=== PATIENT | female | born 1970 | race Caucasian/White ===

== ENCOUNTER 2017-09-25 11:43 | Day surgery (SDC) | payer BC ==
[~2017-09-25] VITALS: Ht 167.6 cm; Wt 114.4 kg
[~2017-09-25 11:43] MED LIST: ACHD5005 PO; ASP81CT PO; CPR500T PO; NAPR-243 PO; OMEG-12 PO
[2017-09-25] MEDS ORDERED: CETI10CA PO (12:03)
--- NOTE | 2017-09-25 12:10 | ED Abdominal Pain ---
General Chief Complaint: Abdominal/GI Problems Stated Complaint: PAIN RIGHT SIDE Nursing Triage Note: PT CO OF ABD PAIN, R UPPER AND LOWER ABD. PT STATES STARTED ON SUNDAY HAD FEVER ON SUNDAY 102.9. PT STATES HAS SOME NAUSEA NO VOMITING. HAS HAD DIARRHEA X 3 DAYS. HAS SOME PAIN UPON URINATION. Sepsis Screen: No Definite Risk History of Present Illness Date Seen by Provider: Sep 25, 2017 Time Seen by Provider: 12:05 Initial Comments SENT TO ER FROM [facility] WITH C/O RIGHT SIDE ABDOMINAL PAIN, FEVER, AND DIARRHEA FOR 2 DAYS. PT DENIES ANY, VOMITING OR DYSURIA, ALSO REPORTS NAUSEA. Timing/Duration: 1-2 Days Severity/Quality: Mild Location: RUQ, RLQ Radiation: No Radiation Activities at Onset: None Associated Symptoms: Fever/Chills, Nausea/Vomiting Allergies and Home Medications Allergies Coded Allergies: morphine (Verified Allergy, Mild, low blood pressure, 07/27/11) Home Medications Aspirin 81 Mg Chew, 81 MG PO DAILY, (Reported) Cetirizine HCl 10 Mg Capsule, 10 MG PO DAILY, (Reported) Review of Systems Constitutional: see HPI, chills, fever EENTM: No Symptoms Reported, See HPI Respiratory: No Symptoms Reported Cardiovascular: No Symptoms Reported Gastrointestinal: See HPI, Abdominal Pain, Diarrhea, Nausea, Denies Vomiting Genitourinary: No Symptoms Reported, See HPI Musculoskeletal: no symptoms reported Skin: no symptoms reported Psychiatric/Neurological: No Symptoms Reported Endocrine: No Symptoms Reported Hematologic/Lymphatic: No Symptoms Reported Past Ecnhzny-Vxtisg-Vugyau Hx Patient Social History Recent Foreign Travel: No Contact w/Someone Who Travel: No Recent Infectious Disease Expo: No Reproductive System Last Menstrual Period: Sep 17, 2017 Physical Exam Vital Signs VS - Last 72 Hours, by Label 09/25/17 11:50 Temp 98.0 Pulse 109 Resp 18 B/P (MAP) 147/106 (120) Pulse Ox 100 Capillary Refill : Less Than 3 Seconds General Appearance: WD/WN, no apparent distress HEENT: PERRL/EOMI, normal ENT inspection Neck: non-tender, full range of motion Respiratory: chest non-tender, lungs clear, normal breath sounds, no respiratory distress Cardiovascular: no murmur, tachycardia Gastrointestinal: normal bowel sounds, soft, rebound, tenderness Extremities: normal range of motion, non-tender Neurologic/Psychiatric: alert, normal mood/affect, oriented x 3 Skin: normal color, warm/dry Progress/Results/Core Measures Results/Orders Lab Results Laboratory Tests Test 09/25/17 12:19 09/25/17 13:30 Range/Units White Blood Count 7.2 4.3-11.0 10^3/uL Red Blood Count 4.39 4.35-5.85 10^6/uL Hemoglobin 13.2 11.5-16.0 G/DL Hematocrit 38 35-52 % Mean Corpuscular Volume 87 80-99 FL Mean Corpuscular Hemoglobin 30 25-34 PG Mean Corpuscular Hemoglobin Concent 35 32-36 G/DL Red Cell Distribution Width 13.7 10.0-14.5 % Platelet Count 228 130-400 10^3/uL Mean Platelet Volume 9.6 7.4-10.4 FL Neutrophils (%) (Auto) 65 42-75 % Lymphocytes (%) (Auto) 25 12-44 % Monocytes (%) (Auto) 8 0-12 % Eosinophils (%) (Auto) 2 0-10 % Basophils (%) (Auto) 0 0-10 % Neutrophils # (Auto) 4.7 1.8-7.8 X 10^3 Lymphocytes # (Auto) 1.8 1.0-4.0 X 10^3 Monocytes # (Auto) 0.6 0.0-1.0 X 10^3 Eosinophils # (Auto) 0.1 0.0-0.3 10^3/uL Basophils # (Auto) 0.0 0.0-0.1 10^3/uL Sodium Level 139 135-145 MMOL/L Potassium Level 4.2 3.6-5.0 MMOL/L Chloride Level 106 98-107 MMOL/L Carbon Dioxide Level 22 21-32 MMOL/L Anion Gap 11 5-14 MMOL/L Blood Urea Nitrogen 9 7-18 MG/DL Creatinine 0.86 0.60-1.30 MG/DL Estimat Glomerular Filtration Rate > 60 BUN/Creatinine Ratio 10 Glucose Level 98 70-105 MG/DL Calcium Level 9.1 8.5-10.1 MG/DL Total Bilirubin 1.1 H 0.1-1.0 MG/DL Aspartate Amino Transf (AST/SGOT) 37 H 5-34 U/L Alanine Aminotransferase (ALT/SGPT) 50 0-55 U/L Alkaline Phosphatase 90 40-136 U/L Total Protein 7.7 6.4-8.2 GM/DL Albumin 4.2 3.2-4.5 GM/DL Lipase 13 8-78 U/L Serum Test, Qualitative NEGATIVE NEGATIVE Urine Color YELLOW Urine Clarity CLEAR Urine pH 5 5-9 Urine Specific [place] 1.010 L 1.016-1.022 Urine Protein NEGATIVE NEGATIVE Urine Glucose (UA) NEGATIVE NEGATIVE Urine Ketones 2+ H NEGATIVE Urine Nitrite NEGATIVE NEGATIVE Urine Bilirubin NEGATIVE NEGATIVE Urine Urobilinogen NORMAL NORMAL MG/DL Urine Leukocyte Esterase 3+ H NEGATIVE Urine RBC (Auto) NEGATIVE NEGATIVE Urine RBC NONE /HPF Urine WBC 50-100 H /HPF Urine Squamous Epithelial Cells 10-25 H /HPF Urine Crystals NONE /LPF Urine Bacteria FEW H /HPF Urine Casts NONE /LPF Urine Mucus NEGATIVE /LPF Urine Culture Indicated YES My Orders Orders - GLENIS CARL APRN Ct Abdomen/Pelvis W (09/25/17 12:01) Cbc With Automated Diff (09/25/17 12:01) Comprehensive Metabolic Panel (09/25/17 12:01) Lipase (09/25/17 12:01) Ua Culture If Indicated (09/25/17 12:01) Saline Lock/Iv-Start (09/25/17 12:01) Ns Iv 1000 Ml (Sodium Chloride 0.9%) (09/25/17 12:15) Iohexol Injection (Omnipaque 350 Mg/Ml 1 (09/25/17 12:15) Ns (Ivpb) (Sodium Chloride 0.9%) (09/25/17 12:15) Us Gallbladder [id number] (09/25/17 12:46) Hcg,Qualitative Serum (09/25/17 13:19) Piperacillin Sodium/Tazobactam (Zosyn Vi (09/25/17 13:45) Urine Culture (09/25/17 13:30) Medications Given in ED Current Medications Medications Dose Ordered Sig/Pippa Route Start Time Stop Time Status Last Admin Dose Admin Iohexol 100 ml ONCE ONCE IV 09/25/17 12:15 09/25/17 12:16 DC 09/25/17 12:28 100 ML Sodium Chloride 250 ml ONCE ONCE IV 09/25/17 12:15 09/25/17 12:16 DC 09/25/17 12:28 80 ML Vital Signs/I&O Vital Sign - Last 12Hours 2/13/18 11:50 Temp 98.0 Pulse 109 Resp 18 B/P (MAP) 147/106 (120) Pulse Ox 100 Blood Pressure Mean: 120 Progress Note : Progress Note 1335- MONTES DE OCA HERE TO EVALUATE PT. Diagnostic Imaging Diagonstic Imaging: CT Comments NAME: DEBBIE DIANE MED REC#: [id number] PT STATUS: REG ER : 1970 PHYSICIAN: GLENIS CARL APRN ADMIT DATE: 09/25/17/ER Draft Date of Exam:09/25/17 CT ABDOMEN/PELVIS W PROCEDURE: CT abdomen and pelvis with contrast. TECHNIQUE: Multiple contiguous axial images were obtained through the abdomen and pelvis after administration of intravenous contrast. INDICATION: Pain. FINDINGS: The appendix is thick-walled, dilated with periappendiceal edema confirming acute appendicitis. It arises off the posterior wall of the cecum and is oriented superolaterally with a maximal outer wall to outer wall transverse diameter of 14.1 mm. There is an IUD device in good position within a retroflexed uterus. There are probable bilateral myometrial masses compatible with fibroids with the larger on the right measuring 2.1 cm. There is noninflamed sigmoid diverticulosis. The urinary bladder is without air and shows no acute finding. There is abscess. There is no bowel obstruction. No findings of transmural perforation or free intraperitoneal gas. 3 mm nonobstructing left renal calculus noted. Cholelithiasis is present without acute cholecystitis. The adrenals, spleen, pancreas, and kidneys are negative. IMPRESSION: 1. Acute appendicitis confirmed without evidence of bowel obstruction, transmural perforation, or abscess. 2. Additional chronic findings as listed. Results phoned to the emergency room. Dictated on workstation # [id number] Dict: 09/25/17 1300 Trans: 09/25/17 1314 [id number] Interpreted by: BLANCA FONTANEZ Electronically signed by: NAME: DEBBIE DIANE MED REC#: [id number] PT STATUS: REG ER : 1970 PHYSICIAN: GLENIS CARL APRN ADMIT DATE: 09/25/17/ER Draft Date of Exam:09/25/17 [place] GALLBLADDER [id number] CLINICAL INDICATION: Patient with right abdominal pain. EXAM: Right upper quadrant ultrasound. COMPARISON: CT scan of the abdomen and pelvis with contrast dated 09/25/2017. FINDINGS: Of note, patient's comparison CT scan shows uncomplicated acute appendicitis. The pancreatic tail is partially obscured by bowel gas. The visualized portion of pancreatic head and neck are grossly unremarkable. The liver has normal echogenicity and echotexture with no liver mass seen. There is no intrahepatic ductal dilation. The liver is mildly enlarged measuring 17.3 cm in craniocaudal dimension. The common bile duct is obscured by overlying bowel gas. There is a roughly 8 mm of posterior shadowing stone in the neck the gallbladder. Although not completely delineated on this ultrasound exam, there are at least two stones seen on the comparison CT scan. There is no significant gallbladder wall thickening, pericholecystic fluid and no sonographic Ledezma sign. The right kidney is normal-appearing with no hydronephrosis or mass. Right kidney measures 11.0 cm in craniocaudal dimension. There is no abdominal ascites. IMPRESSION: 1: Portion of the pancreatic tail and common bile duct are obscured limiting evaluation. 2: Cholelithiasis with no ultrasound evidence of acute cholecystitis. 3: Mild hepatomegaly. Otherwise, the liver is unremarkable. Dictated on workstation # [id number] Dict: 09/25/17 1316 Trans: 09/25/17 1328 [facility] [id number] Interpreted by: LAVELL PRO MD Electronically signed by: Departure Communication (Admissions) Time/Spoke to Admitting Phy: 13:08 Communication RELAYED RADIOLOGIST REPORT TO DR MONTES DE OCA AND HE WILL BE DOWN TO SEE THE PT AND PREPARE FOR SURGERY. Impression Impression: Primary Impression: Acute appendicitis Disposition: ADMITTED INPATIENT Condition: Stable Admissions Decision to Admit Reason: Admit from ER (General) Decision to Admit/Date: Sep 25, 2017 Time/Decision to Admit Time: 13:08 Departure-Patient Inst. Referrals: FERNANDO HANNA DO (PCP/Family) Primary Care Physician GLENIS CARL APRN Sep 25, 2017 12:10
[2017-09-25] MEDS ORDERED: NS IV 1000 ML 1,000 ML IV SCH (12:15)
[2017-09-25] MEDS ORDERED: NS 250 ML (IVPB) BAG IV ONE (12:15)
[2017-09-25] MEDS ORDERED: IOHEXOL 350 MG/ML 100 ML (OMNIPAQUE 350) VIAL IV ONE (12:15)
[2017-09-25 12:25] LABS: BASOPHILS % (AUTO) 0 % (0-10); EOSINOPHILS # (AUTO) 0.1 10^3/uL (0.0-0.3); EOSINOPHILS % (AUTO) 2 % (0-10); HEMATOCRIT 38 % (35-52); HEMOGLOBIN 13.2 G/DL (11.5-16.0); LYMPHOCYTES # (AUTO) 1.8 X 10^3 (1.0-4.0); LYMPHOCYTES % (AUTO) 25 % (12-44); MEAN CORPUSCULAR HEMOGLOBIN 30 PG (25-34); MEAN CORPUSCULAR HGB CONC 35 G/DL (32-36); MEAN CORPUSCULAR VOLUME 87 FL (80-99); MEAN PLATELET VOLUME 9.6 FL (7.4-10.4); MONOCYTES # (AUTO) 0.6 X 10^3 (0.0-1.0); MONOCYTES % (AUTO) 8 % (0-12); NEUTROPHILS # (AUTO) 4.7 X 10^3 (1.8-7.8); NEUTROPHILS % (AUTO) 65 % (42-75); PLATELET COUNT 228 10^3/uL (130-400); RED BLOOD COUNT 4.39 10^6/uL (4.35-5.85); RED CELL DISTRIBUTION WIDTH 13.7 % (10.0-14.5); WHITE BLOOD COUNT 7.2 10^3/uL (4.3-11.0)
[2017-09-25 12:43] LABS: ALANINE AMINOTRANSFERASE 50 U/L (0-55); ALBUMIN 4.2 GM/DL (3.2-4.5); ALKALINE PHOSPHATASE 90 U/L (40-136); BILIRUBIN,TOTAL 1.1 MG/DL (0.1-1.0); BUN/CREATININE RATIO 10; CALCIUM 9.1 MG/DL (8.5-10.1); CARBON DIOXIDE 22 MMOL/L (21-32); CHLORIDE 106 MMOL/L (98-107); CREATININE SERUM 0.86 MG/DL (0.60-1.30); GFR ESTIMATED > 60; GLUCOSE 98 MG/DL (70-105); LIPASE 13 U/L (8-78); POTASSIUM 4.2 MMOL/L (3.6-5.0); SODIUM 139 MMOL/L (135-145); TOTAL PROTEIN 7.7 GM/DL (6.4-8.2)
--- NOTE | 2017-09-25 13:15 | Diagnostic Imaging Report ---
PROCEDURE: CT abdomen and pelvis with contrast. TECHNIQUE: Multiple contiguous axial images were obtained through the abdomen and pelvis after administration of intravenous contrast. INDICATION: Pain. FINDINGS: The appendix is thick-walled, dilated with periappendiceal edema confirming acute appendicitis. It arises off the posterior wall of the cecum and is oriented superolaterally with a maximal outer wall to outer wall transverse diameter of 14.1 mm. There is an IUD device in good position within a retroflexed uterus. There are probable bilateral myometrial masses compatible with fibroids with the larger on the right measuring 2.1 cm. There is noninflamed sigmoid diverticulosis. The urinary bladder is without air and shows no acute finding. There is abscess. There is no bowel obstruction. No findings of transmural perforation or free intraperitoneal gas. 3 mm nonobstructing left renal calculus noted. Cholelithiasis is present without acute cholecystitis. The adrenals, spleen, pancreas, and kidneys are negative. IMPRESSION: 1. Acute appendicitis confirmed without evidence of bowel obstruction, transmural perforation, or abscess. 2. Additional chronic findings as listed. Results phoned to the emergency room. Dictated by: Dictated on workstation # [id number]
--- NOTE | 2017-09-25 13:28 | Diagnostic Imaging Report ---
CLINICAL INDICATION: Patient with right abdominal pain. EXAM: Right upper quadrant ultrasound. COMPARISON: CT scan of the abdomen and pelvis with contrast dated 09/25/2017. FINDINGS: Of note, patient's comparison CT scan shows uncomplicated acute appendicitis. The pancreatic tail is partially obscured by bowel gas. The visualized portion of pancreatic head and neck are grossly unremarkable. The liver has normal echogenicity and echotexture with no liver mass seen. There is no intrahepatic ductal dilation. The liver is mildly enlarged measuring 17.3 cm in craniocaudal dimension. The common bile duct is obscured by overlying bowel gas. There is a roughly 8 mm of posterior shadowing stone in the neck the gallbladder. Although not completely delineated on this ultrasound exam, there are at least two stones seen on the comparison CT scan. There is no significant gallbladder wall thickening, pericholecystic fluid and no sonographic Ledezma sign. The right kidney is normal-appearing with no hydronephrosis or mass. Right kidney measures 11.0 cm in craniocaudal dimension. There is no abdominal ascites. IMPRESSION: 1: Portion of the pancreatic tail and common bile duct are obscured limiting evaluation. 2: Cholelithiasis with no ultrasound evidence of acute cholecystitis. 3: Mild hepatomegaly. Otherwise, the liver is unremarkable. Dictated by: Dictated on workstation # [id number]
[2017-09-25 13:43] LABS: BILIRUBIN,URINE NEGATIVE (NEGATIVE); CLARITY,URINE CLEAR; COLOR,URINE YELLOW; GLUCOSE, URINE (UA) NEGATIVE (NEGATIVE); KETONES,URINE 2+ (NEGATIVE); LEUKOCYTE ESTERASE ,URINE 3+ (NEGATIVE); NITRITE,URINE NEGATIVE (NEGATIVE); PH,URINE 5 (5-9); PROTEIN,URINE NEGATIVE (NEGATIVE); UROBILINOGEN,URINE NORMAL (NORMAL)
[2017-09-25] MEDS ORDERED: PIPERACILLIN SODIUM/TAZOBACTAM 4.5 GM in NS (IVPB) 100 ML IV ONE (13:45)
[2017-09-25 13:56] LABS: BACTERIA,URINE FEW /HPF; WBC,URINE 50-100 /HPF
[2017-09-25] MEDS ORDERED: LIDOCAINE 1% INJ 20 ML (XYLOCAINE) VIAL ONE (14:09)
[2017-09-25] MEDS ORDERED: BUPIVACAINE 0.5% 30 ML (SENSORCAINE) VIAL ONE (14:09)
[2017-09-25] MEDS ORDERED: DEXAMETHASONE 10 MG/ML (DECADRON) 1 ML VIAL ONE (14:34)
[2017-09-25] MEDS ORDERED: LIDOCAINE PF 2% 5 ML (XYLOCAINE) VIAL ONE (14:34)
[2017-09-25] MEDS ORDERED: proPOfol 200 MG/20 ML (DIPRIVAN) VIAL IV ONE (14:34)
[2017-09-25] MEDS ORDERED: SEVOFLURANE (ULTANE) 15 ML INHAL SOLN ONE ×2 (14:34→16:16)
[2017-09-25] MEDS ORDERED: fentaNYL INJECTION 100 MCG/2 ML AMP ONE ×3 (14:35→16:02)
[2017-09-25] MEDS ORDERED: MIDAZOLAM 2 MG/2 ML (VERSED) VIAL ONE (14:35)
[2017-09-25] MEDS ORDERED: ROCURONIUM 50 MG/5 ML (ZEMURON) VIAL IV ONE (14:37)
--- NOTE | 2017-09-25 14:37 | History & Physical-Surgical ---
History of Present Illness History of Present Illness Reason for visit/HPI right lower quadrant abdominal pain seen and evaluated in ed 47 year old female with 2 days of abdominal pain in rlq. Hester moderate to severe. Had fever up to 102 then resolved. Patient pain no radiation of pain. Has slight pain up right side of abdomen. Had nausea, no emesis. Some slight pain with urination. Had a ct scan that shows appendix inflammed and has cholelithiasis. U/s demonstrates stone but no evidence of cholecystitis. Date of Admission Date Seen by Provider: Sep 25, 2017 Time Seen by Provider: 13:45 I consulted on this patient on 09/25/17 14:32 Attending Physician Tom Spence DO Admitting Physician Vivek Pfeiffer DO Consult Allergies and Home Medications Allergies Coded Allergies: morphine (Verified Allergy, Mild, low blood pressure, 07/27/11) Home Medications Aspirin 81 Mg Chew, 81 MG PO DAILY, (Reported) Cetirizine HCl 10 Mg Capsule, 10 MG PO DAILY, (Reported) Past Gwfsgsu-Oijyel-Egvsjt Hx Patient Social History Alcohol Use: Denies Use Recreational Drug Use: No Smoking Status: Never a Smoker Recent Foreign Travel: No Contact w/Someone Who Travel: No Recent Infectious Disease Expo: No Recent Hopitalizations: No Seasonal Allergies Seasonal Allergies: No Surgeries Surgeries: Adenoidectomy, Tonsillectomy Respiratory History of Respiratory Disorde: No Cardiovascular History of Cardiac Disorders: No Neurological History of Neurological Disord: No Reproductive System : No Genitourinary History of Genitourinary Disor: No Gastrointestinal History of Gastrointestinal Di: No Musculoskeletal History of Musculoskeletal Dis: No Endocrine History of Endocrine Disorders: No Cancer History of Cancer: No Psychosocial History of Psychiatric Problem: No Integumentary History of Skin or Integumenta: No Family Medical History Significant Family History: No Pertinent Family Hx Constitutional: fever EENTM: no symptoms reported Respiratory: no symptoms reported Cardiovascular: no symptoms reported Gastrointestinal: RLQ, abdominal pain (RLQ) Genitourinary: see HPI Musculoskeletal: no symptoms reported Skin: no symptoms reported Psychiatric/Neurological: No Symptoms Reported Physical Exam Vital Signs Vital Signs - First Documented 09/25/17 11:50 Temp 98.0 Pulse 109 Resp 18 B/P (MAP) 147/106 (120) Pulse Ox 100 Capillary Refill : Less Than 3 Seconds General Appearance: No Apparent Distress HEENT: PERRL/EOMI Neck: Normal Inspection, Non Tender Respiratory: Lungs Clear, No Accessory Muscle Use, No Respiratory Distress Cardiovascular: Regular Rate, Rhythm Gastrointestinal: Tenderness (right lower quadrant) Rectal: Deferred Back: Normal Inspection Extremity: Normal Inspection Neurologic/Psychiatric: Alert, Oriented x3 Skin: Warm/Dry Lymphatic: No Adenopathy Data Review Labs Laboratory Tests 09/25/17 12:19: White Blood Count 7.2, Red Blood Count 4.39, Hemoglobin 13.2, Hematocrit 38, Mean Corpuscular Volume 87, Mean Corpuscular Hemoglobin 30, Mean Corpuscular Hemoglobin Concent 35, Red Cell Distribution Width 13.7, Platelet Count 228, Mean Platelet Volume 9.6, Neutrophils (%) (Auto) 65, Lymphocytes (%) (Auto) 25, Monocytes (%) (Auto) 8, Eosinophils (%) (Auto) 2, Basophils (%) (Auto) 0, Neutrophils # (Auto) 4.7, Lymphocytes # (Auto) 1.8, Monocytes # (Auto) 0.6, Eosinophils # (Auto) 0.1, Basophils # (Auto) 0.0, Sodium Level 139, Potassium Level 4.2, Chloride Level 106, Carbon Dioxide Level 22, Anion Gap 11, Blood Urea Nitrogen 9, Creatinine 0.86, Estimat Glomerular Filtration Rate > 60, BUN/ Creatinine Ratio 10, Glucose Level 98, Calcium Level 9.1, Total Bilirubin 1.1H, Aspartate Amino Transf (AST/SGOT) 37H, Alanine Aminotransferase (ALT/SGPT) 50, Alkaline Phosphatase 90, Total Protein 7.7, Albumin 4.2, Lipase 13, Serum Test, Qualitative NEGATIVE 09/25/17 13:30: Urine Color YELLOW, Urine Clarity CLEAR, Urine pH 5, Urine Specific [place] 1.010L, Urine Protein NEGATIVE, Urine Glucose (UA) NEGATIVE, Urine Ketones 2+H, Urine Nitrite NEGATIVE, Urine Bilirubin NEGATIVE, Urine Urobilinogen NORMAL, Urine Leukocyte Esterase 3+H, Urine RBC (Auto) NEGATIVE, Urine RBC NONE, Urine WBC 50-100H, Urine Squamous Epithelial Cells 10-25H, Urine Crystals NONE, Urine Bacteria FEWH, Urine Casts NONE, Urine Mucus NEGATIVE, Urine Culture Indicated YES Assessment/Plan Assessment/Plan Assessment/Plan appendicitis cholelithiasis patient discussed risks and benefits of laparoscopic appendectomy and possible cholecystectomy if it looks inflamed she understands risks and benefits and wishes to proceed. to or npo Zosyn being given in ED TOM SPENCE DO Sep 25, 2017 14:37
[2017-09-25] MEDS ORDERED: ONDANSETRON 4 MG/2 ML (SDV) Z0FRAN ONE ×2 (14:39→16:02)
[2017-09-25] MEDS ORDERED: LACTATED RINGERS 1,000 ML IV PRN (15:23)
[2017-09-25] MEDS ORDERED: GLYCOPYRROLATE 0.2 MG/ML (ROBINUL) 2 ML VIAL ONE (16:08)
[2017-09-25] MEDS ORDERED: NEOSTIGMINE (BLOXIVERZ ) 1 MG/1ML 10 ML VIAL ONE (16:08)
[2017-09-25] MEDS ORDERED: fentaNYL INJECTION 100 MCG/2 ML AMP IVP PRN ×2 (16:15→16:45)
--- NOTE | 2017-09-25 16:15 | Progress Note-Post Operative ---
Post-Operative Progess Note Surgeon (s)/Peritoneal Dialysis Registered Nurse (s) Surgeon TOM MONTES DE OCA DO Peritoneal Dialysis Registered Nurse: na Pre-Operative Diagnosis appendicitis Post-Operative Diagnosis same Procedure & Operative Findings Date of Procedure 09/25/17 Procedure Performed/Findings laparoscopic appendectomy Anesthesia Type gen Estimated Blood Loss Estimated blood loss (mL): min Specimens/Packing Specimens Removed appendix TOM MONTES DE OCA DO Sep 25, 2017 16:15
[2017-09-25] MEDS ORDERED: DOCU-143 PO (16:20)
[2017-09-25] MEDS ORDERED: ACHD5005 PO (16:20)
--- NOTE | 2017-09-25 16:21 | Discharge Inst-Simple/Standard ---
Discharge Inst-Standard Discharge Medications New, Converted or Re-Newed RX: RX on Chart Patient Instructions/Follow Up Plan of Care/Instructions/FU: 2 weeks Spence Activity as Tolerated: No Discharge Diet: Regular Diet Other Inst to Patient Follow up Appt: Make appointment for 2 week. Instructions: No lifting greater than 10 pounds. No strenuous activity. May shower in 24 hours, no tub bath or soaking. Use incentive spirometer at home as directed. No Smoking Skin/Wound Care: You have special glue over incisions, it will fall off on its own. Symptoms to Report: Appetite Changes, Extremity Discoloration, Numbness/Tingling, Swelling Increased , Bleeding Excessive, Eyesight Changes, Pain Increased, Urine Color Change, Constipation(Persistent), Fever over 101 degree F, Pain/Pressure in chest, Urinating Difficulty, Cough Up/Vomit Blood, Heart Beat Irreg/Pounding, Pain/ Pressure in jaw, Vaginal Bleeding Increase, Cramps in feet or legs, Lightheadedness, Pain/Pressure in shoulder, Diarrhea(Persistent), Memory Changes Suddenly, Questions/Concerns, Weight gain consecutive days, Dizziness/ Fainting, Nausea/Vomiting, Shortness of Breath, Weight gain over 2 pounds If questions or concerns contact your physician Or seek help at emergency department. TOM SPENCE DO Sep 25, 2017 16:21
[2017-09-25] MEDS ORDERED: MEPERIDINE (DEMEROL) INJ 50 MG/ML IVP PRN (16:45)
[2017-09-25] MEDS ORDERED: ONDANSETRON 4 MG/2 ML (SDV) Z0FRAN IVP PRN (16:45)
[2017-09-25 17:30] VITALS: BP 131/65
[2017-09-25] MEDS: NS IV 1000 ML 1,000 ML IV SCH (18:02)
[2017-09-25 20:57] VITALS: BP 128/67
[2017-09-25] MEDS: PIPERACILLIN SODIUM/TAZOBACTAM 4.5 GM in NS (IVPB) 100 ML IV SCH (21:21)
--- NOTE | 2017-09-25 22:09 | OPERATIVE REPORT ---
DATE OF SERVICE: 09/25/2017 PREOPERATIVE DIAGNOSIS: Appendicitis. POSTOPERATIVE DIAGNOSIS: Appendicitis. PROCEDURE: Laparoscopic appendectomy. SURGEON: Tom Spence DO. ANESTHESIA: General. ESTIMATED BLOOD LOSS: Minimal. COMPLICATIONS: None. INDICATIONS: The patient is a 47-year-old female who has been having 2 days of right lower quadrant abdominal pain. She had a CT scan demonstrating appendicitis. She was also found to have gallbladder with gallstones. She was explained the risks and benefits of the procedure and wished to proceed with procedure. Consent was signed in the chart. PROCEDURE: The patient was taken to the operating suite. She was prepped and draped in sterile fashion. Surgical pause was performed. Wally technique was used to enter the abdomen just above the umbilicus. A 0 Vicryl suture was placed in a [id number] fashion for later closure. A balloon trocar was inserted through the incision and pneumoperitoneum was achieved. Under direct visualization of the laparoscope, a 5 mm trocar was placed in the suprapubic region and a 5 mm trocar was placed in the left lower quadrant. The appendix was located, extremely dilated and inflamed. A [place] was used to dissect around the base of the appendix. An Endo-DENISE 2.0 staple load was then fired across the base of the appendix. A LigaSure was then used to remove the mesoappendix from the appendix. Hemostasis was achieved. The appendix was then placed in an Endobag and removed through the 12 mm trocar site. The gallbladder was inspected. It was nice and soft with no signs of acute cholecystitis. The abdomen was then irrigated with copious amounts of irrigation and suctioned. Hemostasis had been achieved. The staple line was intact. The trocars were removed. The 12 mm fascial defect was then closed using 0 Vicryl. A total of 20 mL of 0.5% Marcaine and 1% lidocaine 50:50 ratio was used to anesthetize all of the trocar sites. The skin was then closed using 4-0 Monocryl in a subcuticular fashion. The abdomen was then washed and dried and then Dermabond was placed over the incisions. The patient tolerated procedure well without any complications. She was taken to recovery room in stable condition. Job ID: [id number] DocumentID: [id number] Dictated Date: 09/25/2017 16:25:10 Cash Van Salesperson Date: 09/25/2017 22:08:58 Dictated By: TOM SPENCE DO
[2017-09-26] VITALS: BP 113/64
[2017-09-26] MEDS: NS IV 1000 ML 1,000 ML IV SCH ×2 (01:21→03:03)
[2017-09-26 04:00] VITALS: BP 100/56
[2017-09-26] MEDS: PIPERACILLIN SODIUM/TAZOBACTAM 4.5 GM in NS (IVPB) 100 ML IV SCH (05:45)
[2017-09-26 08:00] VITALS: BP 115/55
--- NOTE | 2017-09-26 08:42 | Anesthesia-General Post-Op ---
General Patient Condition Mental Status/LOC: Same as Preop Cardiovascular: Satisfactory Nausea/Vomiting: Absent Respiratory: Satisfactory Pain: Controlled Complications: Absent Post Op Complications Complications None Follow Up Care/Instructions Patient Instructions None needed. Anesthesia/Patient Condition Patient Condition Patient is doing well, no complaints, stable vital signs, no apparent adverse anesthesia problems. No complications reported per nursing. [place] [facility] [place]: Yes BELKIS ADAM CRNA Sep 26, 2017 08:41
[2017-09-26] MEDS ORDERED: CATHETER FLUSH 10 ML SYR IV PRN (10:00)
--- NOTE | 2017-09-26 10:00 | Progress Note ---
Subjective Date Seen by Provider: Sep 26, 2017 Time Seen by Provider: 08:00 Subjective/Events-last exam Pain controlled. Tolerating diet. Ambulating and using incentive spirometer. Denies n/v fever sweats chills shortness of breath or chest pain. Objective Exam Vital Signs Date Time Temp Pulse Resp B/P (MAP) Pulse Ox O2 Delivery O2 Flow Rate FiO2 09/26/17 08:00 98.2 79 20 115/55 (75) 98 Room Air 09/26/17 04:00 98.2 72 16 100/56 (71) 95 Room Air 09/26/17 00:00 98.6 77 16 113/64 (80) 95 Room Air 09/25/17 20:57 97.1 80 18 128/67 (87) 93 Room Air 09/25/17 19:26 Room Air 09/25/17 17:30 97.7 78 18 131/65 (87) 95 Room Air 09/25/17 14:11 98.0 109 18 100 09/25/17 11:50 98.0 109 18 147/106 (120) 100 I & O 09/26/17 07:00 Intake Total 2190 ml Balance 2190 ml Capillary Refill : Less Than 3 Seconds General Appearance: No Apparent Distress HEENT: PERRL/EOMI Neck: Normal Inspection, Non Tender Respiratory: Lungs Clear, No Accessory Muscle Use, No Respiratory Distress Cardiovascular: Regular Rate, Rhythm Gastrointestinal: normal bowel sounds, soft (incisional tenderness, no signs of infection) Extremity: Normal Inspection Neurologic/Psychiatric: Alert, Oriented x3 Skin: Warm/Dry Lymphatic: No Adenopathy Results Lab Laboratory Tests 09/25/17 12:19: White Blood Count 7.2, Red Blood Count 4.39, Hemoglobin 13.2, Hematocrit 38, Mean Corpuscular Volume 87, Mean Corpuscular Hemoglobin 30, Mean Corpuscular Hemoglobin Concent 35, Red Cell Distribution Width 13.7, Platelet Count 228, Mean Platelet Volume 9.6, Neutrophils (%) (Auto) 65, Lymphocytes (%) (Auto) 25, Monocytes (%) (Auto) 8, Eosinophils (%) (Auto) 2, Basophils (%) (Auto) 0, Neutrophils # (Auto) 4.7, Lymphocytes # (Auto) 1.8, Monocytes # (Auto) 0.6, Eosinophils # (Auto) 0.1, Basophils # (Auto) 0.0, Sodium Level 139, Potassium Level 4.2, Chloride Level 106, Carbon Dioxide Level 22, Anion Gap 11, Blood Urea Nitrogen 9, Creatinine 0.86, Estimat Glomerular Filtration Rate > 60, BUN/ Creatinine Ratio 10, Glucose Level 98, Calcium Level 9.1, Total Bilirubin 1.1H, Aspartate Amino Transf (AST/SGOT) 37H, Alanine Aminotransferase (ALT/SGPT) 50, Alkaline Phosphatase 90, Total Protein 7.7, Albumin 4.2, Lipase 13, Serum Test, Qualitative NEGATIVE 09/25/17 13:30: Urine Color YELLOW, Urine Clarity CLEAR, Urine pH 5, Urine Specific Maud 1.010L, Urine Protein NEGATIVE, Urine Glucose (UA) NEGATIVE, Urine Ketones 2+H, Urine Nitrite NEGATIVE, Urine Bilirubin NEGATIVE, Urine Urobilinogen NORMAL, Urine Leukocyte Esterase 3+H, Urine RBC (Auto) NEGATIVE, Urine RBC NONE, Urine WBC 50-100H, Urine Squamous Epithelial Cells 10-25H, Urine Crystals NONE, Urine Bacteria FEWH, Urine Casts NONE, Urine Mucus NEGATIVE, Urine Culture Indicated YES Microbiology 09/25/17 Urine Culture - Preliminary, Resulted Assessment/Plan Assessment/Plan Assessment/Plan appendicitis cholelithiasis uti s/p laparoscopic appendectomy Zosyn preop and 2 doses postoperatively pain control dc home today Final Diagnosis s/p lap appendectomy appendicitis cholelithiasis uti TOM MONTES DE OCA DO Sep 26, 2017 10:00
--- OUTSIDE RECORDS SUMMARY | 2017-09-27 13:46 | XMS REPORT | Clinical Summary ---
Author Author [facility] Organization [facility] Address Unknown Phone Unavailable Care Team Providers Care Cotton Wringer Name Role Phone Abelardo Amaya PA-C Unavailable No Pcp, Na PCP Unavailable Ravin Ortez RN Unavailable Unavailable Graciela Argueta RN Unavailable Unavailable Kojo Lucas MD Unavailable Cayla Love MA,[facility] Unavailable Unavailable Source Comments Some departments are not documenting in the electronic medical record. If you do not see the information that you expected, contact Release of Information in the Health Information Management department at [phone] for further assistance in locating additional records.[facility] Allergies No Known Allergies Current Medications Prescription Sig. Disp. Refills Start End Date Status Date aspirin EC 81 mg tablet Take 81 mg by mouth Active daily. cetirizine (ZYRTEC) 10 mg Take 10 mg by mouth Active tablet daily. DOCOSAHEXANOIC ACID/EPA Take by mouth. Active (FISH OIL PO) Cinnamon Bark (CINNAMON) Take by mouth. Active 500 mg cap Active Problems Problem Noted Date Multiple thyroid nodules 04/20/2015 Thyromegaly 03/16/2015 Thyroid mass 03/16/2015 Family History Medical History Relation Name Comments Anesthetic Complication Brother Diabetes Son Relation Name Status Comments Brother Son Social History Tobacco Use Types Packs/Day Years Used Date Never Smoker Smokeless Tobacco: Never Used Alcohol Use Drinks/Week oz/Week Comments No Sex Assigned at Date Recorded Not on file Last Filed Vital Signs Vital Sign Reading Time Taken Blood Pressure 120/88 05/21/2015 10:58 AM CDT Pulse 75 05/21/2015 10:58 AM CDT Temperature 36.6 C (97.9 F) 04/09/2015 3:17 PM CDT Respiratory Rate - - Oxygen Saturation 97% 04/09/2015 4:40 PM CDT Inhaled Oxygen - - Concentration Weight 109.3 kg (241 lb) 05/21/2015 10:58 AM CDT Height 167.6 cm (5' 6") 05/21/2015 10:58 AM CDT Body Mass Index 38.9 05/21/2015 10:58 AM CDT Plan of Treatment Health Maintenance Due Date Last Done Comments PHYSICAL (COMPREHENSIVE) 1976 EXAM PERTUSSIS VACCINE 1980 TETANUS VACCINE 1986 CERVICAL CANCER SCREENING 1999 BREAST CANCER SCREENING 2009 INFLUENZA VACCINE 03/13/2017 Results Not on filefrom Last 3 Months
--- OUTSIDE RECORDS SUMMARY | 2017-09-27 13:46 | XMS REPORT | Continuity of Care Document ---
Author Author [facility] Organization [facility] Address Unknown Phone Unavailable Allergies Active Description Code Type Severity Reaction Onset Reported/Identified Relationship to Patient Clinical Status Yes morphine [id number] Drug Allergy Mild low blood press 07/27/2011 Medications There is no data. Problems Date Dx Coded Attending Type Code Diagnosis Diagnosed By 07/27/2011 Ot 592.1 07/27/2011 Ot 789.09 02/22/2015 ROBERTA HANNA DONT Brionna Ot 240.9 03/04/2015 COSENS DO, FERNANDO L Ot 240.9 03/09/2015 COSENS DO, FERNANDO L Ot 240.9 03/09/2015 COSENS DO, FERNANDO L Ot 240.9 03/10/2015 COSENS DO, FERNANDO L Ot 240.9 03/17/2015 COSENS DO, FERNANDO L Ot 240.9 Procedures There is no data. Results There is no data. Encounters ACCT No. Visit Date/Time Discharge Status Pt. Type Provider Facility Loc./Unit Complaint [id number] 03/02/2015 11:13:00 03/02/2015 23:59:59 CLS Outpatient FERNANDO HANNA DO [facility] CARD [id number] 02/19/2015 13:57:00 02/19/2015 23:59:59 CLS Outpatient FERNANDO HANNA DO [facility] RAD [id number] 09/25/2017 16:15:00 Document Registration [id number] 07/27/2011 10:41:00 Document Registration
--- OUTSIDE RECORDS SUMMARY | 2017-09-27 14:18 | XMS REPORT | Continuity of Care Document ---
Author Author [facility] Organization [facility] Address Unknown Phone Unavailable Allergies Active Description Code Type Severity Reaction Onset Reported/Identified Relationship to Patient Clinical Status Yes morphine [id number] Drug Allergy Mild low blood press 07/27/2011 [...] Status Pt. Type Provider Facility Loc./Unit Complaint [id number] 03/02/2015 11:13:00 03/02/2015 23:59:59 CLS Outpatient FERNANDO HANNA DO [facility] CARD [id number] 02/19/2015 13:57:00 02/19/2015 23:59:59 CLS Outpatient FERNANDO HANNA DO [facility] RAD [id number] 09/25/2017 16:15:00 Document Registration [id number] 07/27/2011 10:41:00 Document Registration
--- OUTSIDE RECORDS SUMMARY | 2017-09-27 14:18 | XMS REPORT | Clinical Summary ---
Author Author [facility] Organization [facility] Address Unknown Phone Unavailable Care Team Providers Care Negative Checker Name Role Phone Abelardo Amaya PA-C Unavailable No Pcp, Na PCP Unavailable Ravin Ortez RN Unavailable Unavailable Graciela Argueta RN Unavailable Unavailable Kojo Lucas MD Unavailable Cayla Love MA,[facility] Unavailable Unavailable Source Comments Some departments are not documenting in the electronic medical record. If you do not see the information that you expected, contact Release of Information in the Health Information Management department at [phone] for further assistance in locating additional records.[facility] Allergies No Known Allergies Current Medications [...]
== END 2017-09-26 12:15 | disposition home or self-care (01) ==
LOC: EDUNIT# 11:43 → ER 11:45 → SDC 14:30 → 4TH 17:45 → SDC 09-26 12:15
PROVIDERS: ATTEND Surgery
DX: K35.80 Unspecified acute appendicitis (principal); K80.20 Calculus of gallbladder without cholecystitis without obstruction; N39.0 Urinary tract infection, site not specified; Z79.82 Long term (current) use of aspirin
CPT/HCPCS: 36415; 74177; 76705; 80053; 81000; 83690; 84703; 85025; 87088; 94664; 96361; 96374

== ENCOUNTER 2020-11-12 03:42 | Day surgery (SDC) | payer BC, OTHER ==
[2020-11-12] VITALS (11 sets, daily range): BP systolic 115–173; BP diastolic 63–99
[~2020-11-12] VITALS: Ht 167.7 cm; Wt 114.4 kg
[~2020-11-12 03:42] MED LIST changes: +CETI10CA PO; +DOCU-143 PO
--- NOTE | 2020-11-12 04:03 | ED Abdominal Pain ---
General Stated Complaint: NAUSEA,VOMITING,UPPER ABD PAIN Source of Information: Patient Exam Limitations: No Limitations (JAYCOB STEPHEN MD) History of Present Illness Date Seen by Provider: Nov 12, 2020 Time Seen by Provider: 03:48 Initial Comments Patient is a 50-year-old female who presents to the emergency department tonight with a chief complaint of upper abdominal pain radiating into her back nausea and vomiting. Patient states that she ate chips and salsa for dinner this evening and slowly over the course of the evening developed her pain with the nausea about 3 times since midnight tonight. Patient denies any black or bloody vomitus. She is not having any diarrhea. She states she has a quite queasy stomach. She has been diaphoretic with the nausea. She denies any black or bloody stools. She denies problems with urination such as dysuria, urgency or frequency. She took a little Tylenol at about 3:00 this morning as well as some Tums. No sick contacts in the house. Patient states nothing is made her pain or her nausea any better. She still has her gallbladder. She denies alcohol use. No street drugs no tobacco use. She has had previous appendectomy. 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 She does not take any prescription medications and does not have a primary care provider. All other review of systems reviewed and negative except as stated above. Timing/Duration: 4-6 Hours Severity/Quality: Moderate, Aching, Cramping Location: Epigastric Radiation: Back Activities at Onset: None (JAYCOB STEPHEN MD) Allergies and Home Medications Allergies Coded Allergies: morphine (Verified Allergy, Mild, low blood pressure, 09/25/17) Home Medications Aspirin 81 Mg Chew, 81 MG PO DAILY, (Reported) Cetirizine HCl 10 Mg Capsule, 10 MG PO DAILY, (Reported) Docusate Sodium 100 Mg Capsule, 100 MG PO BID Prescribed by: TOM MONTES DE OCA on 09/25/17 1620 Hydrocodone Bit/Acetaminophen 1 Tab Tab, 1 TAB PO Q4H PRN Prescribed by: TOM MONTES DE OCA on 09/25/17 1620 Patient Home Medication List Home Medication List Reviewed: Yes (JAYCOB STEPHEN MD) Home Medication List Reviewed: Yes (EMMA LO) Review of Systems Review of Systems Constitutional: see HPI EENTM: No Symptoms Reported Respiratory: No Symptoms Reported Cardiovascular: No Symptoms Reported Gastrointestinal: Abdominal Pain, Nausea, Vomiting Genitourinary: No Symptoms Reported Musculoskeletal: back pain Skin: no symptoms reported (JAYCOB STEPHEN MD) All Other Systems Reviewed Negative Unless Noted: Yes (JAYCOB STEPHEN MD) Past Ighdtqb-Kptgtl-Lsbwcr Hx Patient Social History Recent Hopitalizations: No (JAYCOB STEPHEN MD) Immunizations Up To Date Tetanus Booster (TDap): Unknown PED Vaccines UTD: No Date of Influenza Vaccine: Sep 25, 2015 (JAYCOB STEPHEN MD) Seasonal Allergies Seasonal Allergies: No (JAYCOB STEPHEN MD) Past Medical History Adenoidectomy, Appendectomy, Tonsillectomy Respiratory: No Currently Using CPAP: No Currently Using BIPAP: No Cardiac: No Neurological: No Reproductive Disorders: No Female Reproductive Disorders: Denies SPANISH SPEAKING NANNY History: IUD Sexually Transmitted Disease: No HIV/AIDS: No Genitourinary: No Kidney Infection Gastrointestinal: No Musculoskeletal: No Endocrine: No Cancer: No Did You Recieve Any Treatments: No Psychosocial: No Integumentary: No Adverse Reaction/Blood Tranf: No (JAYCOB STEPHEN MD) Family Medical History No Pertinent Family Hx (JAYCOB STEPHNE MD) Physical Exam Vital Signs Vital Signs - First Documented 11/12/20 03:50 Temp 37.0 Pulse 100 Resp 22 B/P (MAP) 170/102 (124) Pulse Ox 99 O2 Delivery Room Air (EMMA LO) Vital Signs Capillary Refill : (JAYCOB STEPHEN MD) Height/Weight/BMI Height: 5'6.00" Weight: 252lbs. 2.0oz. 114.774585kf; 40.7 BMI Method:Stated General Appearance: WD/WN, mild distress Neck: normal inspection Respiratory: lungs clear, normal breath sounds, no respiratory distress, no accessory muscle use Cardiovascular: regular rate, rhythm Gastrointestinal: soft; No distended, No guarding; tenderness (epigastric and RUQ), other (negative Ledezma's sign) Extremities: normal range of motion, non-tender, normal inspection Back: normal inspection Skin: normal color, diaphoresis (JAYCOB STEPHEN MD) Progress/Results/Core Measures Results/Orders Lab Results Laboratory Tests Test 11/12/20 04:00 Range/Units White Blood Count 13.0 H 4.3-11.0 10^3/uL Red Blood Count 4.53 3.80-5.11 10^6/uL Hemoglobin 13.3 11.5-16.0 g/dL Hematocrit 40 35-52 % Mean Corpuscular Volume 88 80-99 fL Mean Corpuscular Hemoglobin 29 25-34 pg Mean Corpuscular Hemoglobin Concent 33 32-36 g/dL Red Cell Distribution Width 12.9 10.0-14.5 % Platelet Count 269 130-400 10^3/uL Mean Platelet Volume 9.8 9.0-12.2 fL Immature Granulocyte % (Auto) 1 % Neutrophils (%) (Auto) 75 42-75 % Lymphocytes (%) (Auto) 19 12-44 % Monocytes (%) (Auto) 4 0-12 % Eosinophils (%) (Auto) 1 0-10 % Basophils (%) (Auto) 0 0-10 % Neutrophils # (Auto) 9.8 H 1.8-7.8 10^3/uL Lymphocytes # (Auto) 2.4 1.0-4.0 10^3/uL Monocytes # (Auto) 0.5 0.0-1.0 10^3/uL Eosinophils # (Auto) 0.2 0.0-0.3 10^3/uL Basophils # (Auto) 0.0 0.0-0.1 10^3/uL Immature Granulocyte # (Auto) 0.1 0.0-0.1 10^3/uL Sodium Level 136 135-145 MMOL/L Potassium Level 3.8 3.6-5.0 MMOL/L Chloride Level 105 98-107 MMOL/L Carbon Dioxide Level 19 L 21-32 MMOL/L Anion Gap 12 5-14 MMOL/L Blood Urea Nitrogen 11 7-18 MG/DL Creatinine 0.90 0.60-1.30 MG/DL Estimat Glomerular Filtration Rate > 60 BUN/Creatinine Ratio 12 Glucose Level 141 H 70-105 MG/DL Calcium Level 9.1 8.5-10.1 MG/DL Corrected Calcium 8.9 8.5-10.1 MG/DL Total Bilirubin 0.4 0.1-1.0 MG/DL Aspartate Amino Transf (AST/SGOT) 14 5-34 U/L Alanine Aminotransferase (ALT/SGPT) 20 0-55 U/L Alkaline Phosphatase 86 40-136 U/L Total Protein 7.3 6.4-8.2 GM/DL Albumin 4.2 3.2-4.5 GM/DL Lipase 24 8-78 U/L (EMMA LO) Medications Given in ED Current Medications Medications Dose Ordered Sig/Pippa Route Start Time Stop Time Status Last Admin Dose Admin Ketorolac Tromethamine 15 mg ONCE ONCE IVP 11/12/20 04:30 11/12/20 04:31 DC 11/12/20 04:32 15 MG Ondansetron HCl 4 mg ONCE ONCE IVP 11/12/20 04:15 11/12/20 04:16 DC 11/12/20 04:10 4 MG (EMMA LO) Vital Signs/I&O 11/12/20 03:50 Temp 37.0 Pulse 100 Resp 22 B/P (MAP) 170/102 (124) Pulse Ox 99 O2 Delivery Room Air (EMMA LO) Progress Progress Note : Time: 05:18 Progress Note Patient reexamined, she is feeling better as far as her nausea but still has abdominal pain. She still has pretty significant tenderness in the right upper quadrant and epigastrium. Mild leukocytosis at 13,000 no elevated liver functions or lipase. Total bili is normal. I suspect biliary colic possibly acute cholecystitis. Will keep her here until ultrasound comes in at 7 AM and do a gallbladder ultrasound at that time. (JAYCOB STEPHEN MD) Progress Note : Time: 07:39 Progress Note Assumed care of the patient at shift change and I agree with above documented history and physical exam from Dr. Stephen. The patient has been comfortable after her dose of Toradol and has not endorsed further nausea or significant pain. She has been able to ambulate to the restroom on her own. Ultrasound reveals gallstone in the neck of the gallbladder. No dilated duct. No elevated bilirubin and only a 13,000 white count. No transaminitis. Discussed the case with Dr. Montes De Oca and he would like to add her onto his cases at the same day surgery center today. rigging supervisor advised. (EMMA LO) Diagnostic Imaging Diagonstic Imaging: Ultrasound Plain Films/CT/US/NM/MRI: abdomen (Gallbladder) Comments Gallstone in the neck of the bladder without ductal dilatation. Reviewed: Reviewed by Me (EMMA LO) Departure Impression Primary Impression: Cholelithiasis Qualified Codes: K80.21 - Calculus of gallbladder without cholecystitis with obstruction Additional Impression: Biliary colic Disposition: XFER SHT-TRM HOSP (sds) Condition: Stable Departure-Patient Inst. Decision time for Depature: 07:48 (EMMA LO) Referrals: NO,LOCAL PHYSICIAN (PCP/Family) Primary Care Physician Patient Instructions: Gallstones Add. Discharge Instructions: Go to same-day surgery for gallbladder surgery today as soon as you leave the ER. JAYCOB STEPHEN MD Nov 12, 2020 04:03 EMMA LO Nov 12, 2020 07:46
[2020-11-12] MEDS ORDERED: DICYCLOMINE 10 MG/ML (BENTYL) 2 ML AMP IM STA (04:04)
[2020-11-12 04:09] LABS: BASOPHILS % (AUTO) 0 % (0-10); EOSINOPHILS # (AUTO) 0.2 10^3/uL (0.0-0.3); EOSINOPHILS % (AUTO) 1 % (0-10); HEMATOCRIT 40 % (35-52); HEMOGLOBIN 13.3 g/dL (11.5-16.0); LYMPHOCYTES # (AUTO) 2.4 10^3/uL (1.0-4.0); LYMPHOCYTES % (AUTO) 19 % (12-44); MEAN CORPUSCULAR HEMOGLOBIN 29 pg (25-34); MEAN CORPUSCULAR HGB CONC 33 g/dL (32-36); MEAN CORPUSCULAR VOLUME 88 fL (80-99); MEAN PLATELET VOLUME 9.8 fL (9.0-12.2); MONOCYTES # (AUTO) 0.5 10^3/uL (0.0-1.0); MONOCYTES % (AUTO) 4 % (0-12); NEUTROPHILS # (AUTO) 9.8 10^3/uL (1.8-7.8); NEUTROPHILS % (AUTO) 75 % (42-75); PLATELET COUNT 269 10^3/uL (130-400)
[2020-11-12] MEDS ORDERED: ONDANSETRON 4 MG/2 ML (SDV) Z0FRAN IVP ONE (04:15)
[2020-11-12] MEDS ORDERED: NS IV 1000 ML 1,000 ML IV SCH (04:15)
[2020-11-12 04:19] LABS: ALBUMIN 4.2 GM/DL (3.2-4.5); CHLORIDE 105 MMOL/L (98-107); POTASSIUM 3.8 MMOL/L (3.6-5.0); SODIUM 136 MMOL/L (135-145)
[2020-11-12 04:21] LABS: CALCIUM 9.1 MG/DL (8.5-10.1)
[2020-11-12 04:22] LABS: GLUCOSE 141 MG/DL (70-105); TOTAL PROTEIN 7.3 GM/DL (6.4-8.2)
[2020-11-12 04:23] LABS: BILIRUBIN,TOTAL 0.4 MG/DL (0.1-1.0); CARBON DIOXIDE 19 MMOL/L (21-32)
[2020-11-12 04:25] LABS: ALKALINE PHOSPHATASE 86 U/L (40-136); GFR ESTIMATED > 60
[2020-11-12 04:26] LABS: BUN/CREATININE RATIO 12
[2020-11-12 04:28] LABS: ALANINE AMINOTRANSFERASE 20 U/L (0-55); LIPASE 24 U/L (8-78)
[2020-11-12] MEDS ORDERED: KETOROLAC 30 MG/ML VIAL IVP ONE (04:30)
--- NOTE | 2020-11-12 09:10 | Diagnostic Imaging Report ---
PROCEDURE: US Gallbladder. TECHNIQUE: Multiple real-time grayscale images were obtained over the right upper quadrant in various projections. INDICATION: Right upper quadrant pain. COMPARISON with previous exam of 09/25/2017. FINDINGS: There is mild increased echogenicity of the liver. The liver is upper limits of normal in size. There are no liver masses. Bile ducts are not dilated. Common duct measures 5 mm. There are several small mobile gallstones. The gallbladder wall is thickened measuring 3 to 4 mm. There is no pericholecystic fluid. The pancreas is obscured by bowel gas. The portion of the aorta visualized appeared normal. The IVC and portal vein are normal. Right kidney is normal measuring 11 x 5 cm. There is no ascites. Negative Ledezma's sign. IMPRESSION: Cholelithiasis with mild thickening of the gallbladder wall. Dictated by: Dictated on workstation # [id number]
[2020-11-12] MEDS ORDERED: IOPAMIDOL 61% 30 ML (ISOVUE 300) VIAL ONE (09:11)
[2020-11-12] MEDS ORDERED: LIDOCAINE/EPI 1%-1:100,000 (XYLOCAINE) 20ML ONE (09:12)
[2020-11-12] MEDS ORDERED: LACTATED RINGERS 1,000 ML IV PRN (10:45)
[2020-11-12] MEDS ORDERED: MIDAZOLAM 2 MG/2 ML (VERSED) VIAL ONE (11:36)
[2020-11-12] MEDS ORDERED: proPOfol 200 MG/20 ML (DIPRIVAN) VIAL IV ONE (11:36)
[2020-11-12] MEDS ORDERED: NEOSTIGMINE 3 MG/3 ML VIAL ONE (11:36)
[2020-11-12] MEDS ORDERED: GLYCOPYRROLATE 0.2 MG/ML (ROBINUL) 2 ML VIAL ONE (11:36)
[2020-11-12] MEDS ORDERED: LIDOCAINE PF 2% 5 ML (XYLOCAINE) VIAL ONE (11:36)
[2020-11-12] MEDS ORDERED: SEVOFLURANE (ULTANE) 15 ML INHAL SOLN ONE (11:36)
[2020-11-12] MEDS ORDERED: ROCURONIUM 10 MG/ML 5 ML SYRINGE IV ONE (11:36)
[2020-11-12] MEDS ORDERED: fentaNYL INJ 100 MCG/2 ML AMP ONE (11:36)
[2020-11-12] MEDS ORDERED: ONDANSETRON 4 MG/2 ML (SDV) Z0FRAN ONE (11:36)
[2020-11-12] MEDS ORDERED: ceFAZolin 2 GM IV Premixed 50 ML ONE (13:00)
--- NOTE | 2020-11-12 13:08 | History & Physical-Surgical ---
GLENIS LOMAS MED STUDENT 11/12/20 1308: History of Present Illness History of Present Illness Reason for visit/HPI Nila is a 50 y.o. F admitted from the ER for cholecystectomy. She complains of sharp achy RUQ abdominal pain radiating up between her shoulder blades beginning last night at 10 pm with subsequent nausea, 3x vomiting, and several episodes of "clammy skin" between midnight and 3 pm. She took tylenol 1000mg at home without significant improvement. Her pain has been constant, worse with sitting or lying down, but did resolve with pain medications given in the ER. The severity is currently 0/10 but was 6/10 at its worst. The patient also notes she takes 81mg ASA daily, last dose yesterday morning, for "possible antiphospholipid syndrome" diagnosed by "Dr. Don" after 3 spontaneous abortions multiple years ago. She has had 4 term live children besides that. The patient states she has not had episodes similar to her current one in the past. The patient denies fever, chills, chest pain, SOB, diarrhea, constipation, and blood in the stool. The patient was referred to surgery after her US of the gallbladder Date of Admission Date Seen by a Provider: Nov 12, 2020 Time Seen by a Provider: 11:40 I consulted on this patient on 11/11/20 11:20 Attending Physician Tom Spence DO Admitting Physician Diamond,Local Physician Consult Allergies and Home Medications Allergies Coded Allergies: morphine (Verified Allergy, Mild, low blood pressure, 11/12/20) Home Medications Aspirin 81 Mg Tab.chew, 81 MG PO DAILY, (Reported) Omeprazole 20 Mg Tablet.dr, 20 MG PO DAILY, (Reported) Past Qchhita-Pzkepm-Vjrypy Hx Patient Social History Number of Drinks Today: 0 Smoking Status: Never a Smoker Recent Hopitalizations: No Have you traveled recently?: No Immunizations Up To Date Tetanus Booster (TDap): Unknown PED Vaccines UTD: No Date of Influenza Vaccine: Sep 25, 2015 Seasonal Allergies Seasonal Allergies: No Surgeries Surgeries: Adenoidectomy, Appendectomy (2018), Tonsillectomy Respiratory History of Respiratory Disorde: No Cardiovascular History of Cardiac Disorders: No Neurological History of Neurological Disord: No Reproductive System Hx : 7 Hx Para: 4 Hx Total # of Abortions (Spona: 3 Hx Reproductive Disorders: No Sexually Transmitted Disease: No HIV/AIDS: No Female Reproductive Disorders: Denies 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 2006) Psychosocial History of Psychiatric Problem: No Integumentary History of Skin or Integumenta: No Blood Transfusions History of Blood Disorders: Yes (reports "possible antiphospholipid syndrome" d/t 3x sp. abortions. ) Adverse Reaction to a Blood Tr: No Family Medical History Significant Family History: No Pertinent Family Hx (denies Fhx Cancer, stroke, [place]), Diabetes (Type 1 in pt's child) Review of Systems Constitutional: No chills; diaphoresis; No fever EENTM: No ear pain, No vision loss Respiratory: No cough, No dyspnea on exertion Cardiovascular: No chest pain, No syncope Gastrointestinal: RUQ (RUQ abdominal pain); No constipation, No diarrhea; nausea, vomiting Genitourinary: No hematuria, No pain Musculoskeletal: No joint pain, No muscle pain (denies extremity pain) Skin: No change in color, No rash Psychiatric/Neurological: Denies Headache, Denies Numbness Physical Exam Vital Signs Vital Signs - First Documented 11/12/20 03:50 Temp 37.0 Pulse 100 Resp 22 B/P (MAP) 170/102 (124) Pulse Ox 99 O2 Delivery Room Air Capillary Refill : Less Than 3 Seconds Height, Weight, BMI Height: 5'6.00" Weight: 252lbs. 2.0oz. [id number]; 40.67 BMI Method:Stated General Appearance: WD/WN, Anxious (mildly) HEENT: PERRL/EOMI Neck: Normal Inspection Respiratory: Chest Non Tender, Lungs Clear, Normal Breath Sounds, No Accessory Muscle Use, No Respiratory Distress Cardiovascular: Regular Rate, Rhythm, No Edema, No Gallop, No Murmur Gastrointestinal: No Pulsatile Mass, Soft; No Distended, No Guarding, No Rebound; Tenderness (Right upper quadrant tenderness. + murphys sign) Rectal: Deferred Extremity: Normal Inspection, No Calf Tenderness Neurologic/Psychiatric: Alert, Oriented x3, Normal Mood/Affect Skin: Normal Color, Warm/Dry Data Review Labs Laboratory Tests 11/12/20 04:00: White Blood Count 13.0H, Red Blood Count 4.53, Hemoglobin 13.3, Hematocrit 40, Mean Corpuscular Volume 88, Mean Corpuscular Hemoglobin 29, Mean Corpuscular Hemoglobin Concent 33, Red Cell Distribution Width 12.9, Platelet Count 269, Mean Platelet Volume 9.8, Immature Granulocyte % (Auto) 1, Neutrophils (%) (Auto) 75, Lymphocytes (%) (Auto) 19, Monocytes (%) (Auto) 4, Eosinophils (%) (Auto) 1, Basophils (%) (Auto) 0, Neutrophils # (Auto) 9.8H, Lymphocytes # (Au to) 2.4, Monocytes # (Auto) 0.5, Eosinophils # (Auto) 0.2, Basophils # (Auto) 0.0, Immature Granulocyte # (Auto) 0.1, Sodium Level 136, Potassium Level 3.8, Chloride Level 105, Carbon Dioxide Level 19L, Anion Gap 12, Blood Urea Nitrogen 11, Creatinine 0.90, Estimat Glomerular Filtration Rate > 60, BUN/Creatinine Ratio 12, Glucose Level 141H, Calcium Level 9.1, Corrected Calcium 8.9, Total Bilirubin 0.4, Aspartate Amino Transf (AST/SGOT) 14, Alanine Aminotransferase (ALT/SGPT) 20, Alkaline Phosphatase 86, Total Protein 7.3, Albumin 4.2, Lipase 24 Assessment/Plan Assessment/Plan Admission Diagonsis symptomatic Cholelithiasis with mild thickening of the gallbladder wall, con firmed on ultrasound. -Plan for cholecystectomy in the OR today reported possible antiphospholipid syndrome -Patient had successful operations including appendectomy here in 2018 -will monitor patient's recovery postoperatively -denies risk factors for DVT/PE including recent travel, immobilization, cancer; denies symptoms of DVT or PE Assessment/Plan Assessment: Cholelithiasis with mild thickening of gallbladder wall TOM SPENCE DO 11/12/20 1418: History of Present Illness History of Present Illness Reason for visit/HPI 50 female with sharp/achy ruq pain that started last night. Nausea and vomiting. Pain constant. Better after Toradol in ER. Never had any issues like this before. Had u/s showing stones in neck of gallbladder and wall thickening. Allergies and Home Medications Allergies Coded Allergies: morphine (Verified Allergy, Mild, low blood pressure, 4/2/21) Home Medications Aspirin 81 Mg Tab.chew, 81 MG PO DAILY, (Reported) Omeprazole 20 Mg Tablet.dr, 20 MG PO DAILY, (Reported) Patient Home Medication List Home Medication List Reviewed: Yes Past Jvdjlsh-Anyrit-Udscex Hx Reviewed Nursing Assessment Reviewed/Agree w Nursing PMH: Yes Family Medical History Significant Family History: No Pertinent Family Hx (denies Fhx Cancer, stroke, [place]) Review of Systems Constitutional: No chills; diaphoresis; No fever EENTM: No ear pain, No vision loss Respiratory: No cough, No dyspnea on exertion Cardiovascular: No chest pain Gastrointestinal: RUQ (RUQ abdominal pain); No constipation, No diarrhea; nausea, vomiting Genitourinary: No hematuria, No pain Musculoskeletal: No joint pain, No muscle pain (denies extremity pain) Skin: No change in color, No rash Psychiatric/Neurological: Denies Headache, Denies Numbness All Other Systems Reviewed Negative Unless Noted: Yes (Negative excepted noted.) Physical Exam General Appearance: No Apparent Distress, WD/WN, Anxious (mildly) HEENT: PERRL/EOMI, Normal ENT Inspection Neck: Normal Inspection, Supple Respiratory: Chest Non Tender, No Accessory Muscle Use, No Respiratory Distress Cardiovascular: Regular Rate, Rhythm, No JVD Gastrointestinal: No Pulsatile Mass, Soft; No Distended, No Guarding, No Rebound; Tenderness (Right upper quadrant tenderness. + murphys sign) Rectal: Deferred Back: Normal Inspection, No CVA Tenderness Extremity: Normal Inspection, No Calf Tenderness Neurologic/Psychiatric: Alert, Oriented x3, No Motor/Sensory Deficits, Normal Mood/Affect, access service representative II-XII Norm as Tested Skin: Normal Color, Warm/Dry Lymphatic: No Adenopathy Assessment/Plan Assessment/Plan Admission Diagonsis symptomatic Cholelithiasis Ruq abdominal pain nausea and vomiting Admission Status: Other (Same Day Surgery) Assessment/Plan symptomatic Cholelithiasis with mild thickening of the gallbladder wall, confirmed on ultrasound. ruq abd pain nausea/vomiting -Plan for laparoscopic cholecystectomy c ioc today she understands risks and benefits and wishes to proceed. NPO Ancef preop Supervisory-Addendum Brief Verification & Attestation Participated in pt care: history, MDM, physical Personally performed: exam, history, MDM, supervision of care Care discussed with: Medical Student Procedures: n/a Results interpretation: Verified all documentation Verification and Attestation of Medical Student E/M Service A medical student performed and documented this service in my presence. I reviewed and verified all information documented by the medical student and made modifications to such information, when appropriate. I personally performed the physical exam and medical decision making. Tom Spence, Nov 12, 2020,13:00 GLENIS LOMAS MED STUDENT Nov 12, 2020 13:08 TOM SPENCE DO Nov 12, 2020 14:18
[2020-11-12] MEDS ORDERED: ASPI-999 PO (13:38)
[2020-11-12] MEDS ORDERED: OMEP20TA7 PO (13:38)
[2020-11-12] MEDS ORDERED: HYDROmorphone 2 MG/ML VIAL (DILAUDID) ONE (14:02)
--- NOTE | 2020-11-12 14:13 | Progress Note-Post Operative ---
Post-Operative Progess Note Surgeon (s)/Product Steward (s) Surgeon TOM MONTES DE OCA DO Product Steward: Dr. Islas to assist in retraction dissection and closure. Pre-Operative Diagnosis symptomatic cholelithiasis Post-Operative Diagnosis acute cholecystitis, cholelithiasis Procedure & Operative Findings Date of Procedure 11/12/20 Procedure Performed/Findings PROCEDURE: Laparoscopic cholecystectomy with intraoperative cholangiogram. COMPLICATIONS: None. PROCEDURE: The patient was taken to the operating suite and was prepped and draped in sterile fashion. A surgical pause was performed. Just superior to the umbilicus, a 12 mm incision was made. Dissection was taken down to the fascia, which was then scored and grasped with a Evelina and the abdomen was then entered. A 0 Vicryl suture was placed in a lqshfd-fs-uyeoe fashion and a Pulido trocar was placed and secured. Pneumoperitoneum was achieved. A 5mm trochar place in the subxyphoid and 2 in the right upper quadrant. The gallbladder was then grasped and elevated. Inflamed and thickened. Edema surrounding the gallbladder. The cystic duct, and cystic artery were then dissected out. Clip was placed on the distal portion of the cystic duct which was then partially transected. An arrow catheter was inserted into the duct. The cholangiogram was then performed. No filing defects and contrast made its way into the duodenum. Catheter removed. Clips were placed on proximal portion of the cystic duct and then the duct was then transected. Clips were placed along the proximal and distal portion of the cystic artery which was then transected. Hook cautery was used to dissect the gallbladder from the gallbladder fossa achieving hemostasis. The gallbladder was placed in an Endobag and removed through the 12 mm trocar site. The abdomen was then reinspected. Copious amounts of irrigation were used to irrigate the abdomen and there were no signs of active bleeding. Hemostasis had been achieved. The 12 mm fascial defect was then closed with 0 Vicryl suture that had been placed in a uetgxi-ft-wylyf fashion. The abdomen was then desufflated, the trocars were removed. The abdomen was then washed and dried. The skin was then closed using 4-0 Monocryl in a subcuticular fashion. The abdomen was washed and dried and Skin Affix was place over incisions. Patient tolerated the procedure well without any complications and was taken to the recovery room in stable condition. Anesthesia Type general Estimated Blood Loss Estimated blood loss (mL): minimal Specimens/Packing Specimens Removed gallbladder TOM MONTES DE OCA DO Nov 12, 2020 14:12
[2020-11-12] MEDS ORDERED: DOCU-143 PO (14:22)
[2020-11-12] MEDS ORDERED: ACHD5005 PO (14:22)
--- NOTE | 2020-11-12 14:23 | Discharge Inst-Simple/Standard ---
Discharge Inst-Standard Discharge Medications New, Converted or Re-Newed RX: RX on Chart Patient Instructions/Follow Up Plan of Care/Instructions/FU: 2-3 weeks Jordy Activity as Tolerated: No Discharge Diet: Regular Diet Other Inst to Patient Follow up Appt: Make appointment for 2-3 weeks. Instructions: No lifting greater than 10 pounds. No strenuous activity. May shower in 24 hours, no tub bath or soaking. Use incentive spirometer at home as directed. No Smoking Skin/Wound Care: You have special glue over incision, it will fall off on it's own. Symptoms to Report: Appetite Changes, Extremity Discoloration, Numbness/Tingling, Swelling Increased, Bleeding Excessive, Eyesight Changes, Pain Increased, Urine Color Change, Constipation(Persistent), Fever over 101 degree F, Pain/Pressure in chest, Urinating Difficulty, Cough Up/Vomit Blood, Heart Beat Irreg/Pounding, Pain/Pressure in jaw, Vaginal Bleeding Increase, Cramps in feet or legs, Lightheadedness, Pain/Pressure in shoulder, Diarrhea(Persistent), Memory Changes Suddenly, Questions/Concerns, Weight gain consecutive days, Dizziness/Fainting, Nausea/Vomiting, Shortness of Breath, Weight gain over 2 pounds. If eyes or skin turn yellow notify physician. If questions or concerns contact your physician Or seek help at emergency department. TOM MONTES DE OCA DO Nov 12, 2020 14:23
[2020-11-12] MEDS ORDERED: HYDROmorphone 2 MG/ML VIAL (DILAUDID) IV ONE (14:30)
[2020-11-12] MEDS ORDERED: ONDANSETRON 4 MG/2 ML (SDV) Z0FRAN IVP PRN (14:30)
[2020-11-12] MEDS ORDERED: fentaNYL INJ 100 MCG/2 ML AMP IVP ONE (14:30)
[2020-11-12] MEDS ORDERED: HYDROcodone/APAP 5 MG/325 MG (LORTAB) TAB ONE (15:37)
--- NOTE | 2020-11-12 15:54 | Anesthesia-General Post-Op ---
General Patient Condition Mental Status/LOC: Same as Preop Cardiovascular: Satisfactory Nausea/Vomiting: Absent Respiratory: Satisfactory Pain: Controlled Complications: Absent Post Op Complications Complications None Follow Up Care/Instructions Patient Instructions None needed. Anesthesia/Patient Condition Patient Condition Patient was seen after the procedure and she was doing well, no complaints, stable vital signs, no apparent adverse anesthesia problems. JAMESON LOPEZ DO Nov 12, 2020 15:54
[2020-11-12] MEDS ORDERED: HYDROcodone/APAP 5 MG/325 MG (LORTAB) TAB PO ONE (16:00)
--- NOTE | 2020-11-12 17:09 | Diagnostic Imaging Report ---
INDICATION: Right upper quadrant abdominal pain, cholelithiasis undergoing cholecystectomy FINDINGS: Single intraoperative cholangiogram image and a cine loop are submitted. There is cannulation of the extra hepatic biliary tree. There is overall limited contrast density within the biliary tree. Biliary tree is not significantly dilated. There was no persistent filling defect to indicate a retained stone. There is some reflux into the main pancreatic duct. Flow was present into the duodenum. IMPRESSION: Negative laparoscopic cholangiogram. Fluoroscopy Time: 27 seconds Dictated by: Dictated on workstation # [id number]
== END 2020-11-12 16:30 | disposition home or self-care (01) ==
LOC: EDUNIT# 03:42 → ER 03:46 → SDC 08:03
PROVIDERS: ATTEND Surgery
DX: K80.12 Calculus of gallbladder with acute and chronic cholecystitis without obstruction (principal); K21.9 Gastro-esophageal reflux disease without esophagitis; E66.01 Morbid (severe) obesity due to excess calories; Z68.41 Body mass index [BMI] 40.0-44.9, adult; Z79.82 Long term (current) use of aspirin; Z79.899 Other long term (current) drug therapy; Z88.5 Allergy status to narcotic agent
CPT/HCPCS: 36415; 76000; 76705; 80053; 83690; 84703; 85025; 87081; 88304

== ENCOUNTER → 2021-05-31 | Outpatient (CLI) | payer OTHER ==
[~2021-05-31] VITALS: Ht 167.6 cm; Wt 122.0 kg
[~2021-05-31] MED LIST changes: +ASPI-999 PO; +BIOT5000 PO; +CETI10TA17 PO; +MULT-1136 PO; +MV-M1TAB20 PO; +OMEP20TA7 PO
== END | disposition home or self-care (01) ==
LOC: PREOP 05:32
PROVIDERS: ATTEND Surgery
DX: Z01.818 Encounter for other preprocedural examination (principal)

== ENCOUNTER 2021-06-07 06:58 | Day surgery (SDC) | payer BC, OTHER ==
[~2021-06-07] VITALS: Ht 167.6 cm; Wt 122.0 kg
[2021-06-07] MEDS ORDERED: LACTATED RINGERS 1,000 ML IV STA (07:09)
[2021-06-07 07:18] VITALS: BP 149/79
[2021-06-07] MEDS ORDERED: proPOfol 200 MG/20 ML (DIPRIVAN) VIAL IV ONE ×2 (08:04→08:28)
[2021-06-07] MEDS ORDERED: MIDAZOLAM 2 MG/2 ML (VERSED) VIAL ONE (08:04)
--- NOTE | 2021-06-07 08:28 | Progress Note-Post Operative ---
Post-Operative Progess Note Surgeon (s)/Marketing Coordinator (s) Surgeon TOM MONTES DE OCA DO Marketing Coordinator: na Pre-Operative Diagnosis screening colonoscopy Post-Operative Diagnosis diverticulosis, rectal polyp Procedure & Operative Findings Date of Procedure 06/07/21 Procedure Performed/Findings colonoscopy c snare polypectomy Anesthesia Type per mda Estimated Blood Loss Estimated blood loss (mL): na Specimens/Packing Specimens Removed rectal polyp TOM MONTES DE OCA DO Jun 07, 2021 08:28
[2021-06-07 08:30] VITALS: BP 123/66
--- NOTE | 2021-06-07 08:33 | Discharge Inst-Simple/Standard ---
Discharge Inst-Standard Patient Instructions/Follow Up Plan of Care/Instructions/FU: 2 weeks Jordy Activity as Tolerated: Yes Discharge Diet: Regular Diet (high fiber) TOM MONTES DE OCA DO Jun 07, 2021 08:33
[2021-06-07 08:35] VITALS: BP 125/76
[2021-06-07 08:50] VITALS: BP 144/103
[2021-06-07 09:20] VITALS: BP 144/103
--- NOTE | 2021-06-07 14:20 | Anesthesia-General Post-Op ---
MAC Patient Condition Mental Status/LOC: Same as Preop Cardiovascular: Satisfactory Nausea/Vomiting: Absent Respiratory: Satisfactory Pain: Controlled Complications: Absent Post Op Complications Complications None Follow Up Care/Instructions Patient Instructions None needed. Anesthesiology Discharge Order Discharge Order Patient is doing well, no complaints, stable vital signs, no apparent adverse anesthesia problems. JAMESON LOPEZ DO Jun 07, 2021 14:20
--- NOTE | 2021-06-07 14:21 | OPERATIVE REPORT ---
DATE OF SERVICE: 06/07/2021 PREOPERATIVE DIAGNOSIS: Screening colonoscopy. POSTOPERATIVE DIAGNOSES: Rectal polyp and diverticulosis. PROCEDURE: Colonoscopy with snare polypectomy. SURGEON: Tom Spence DO ANESTHESIA: Per MDA. ESTIMATED BLOOD LOSS: None. COMPLICATIONS: None. INDICATIONS: The patient is a 50-year-old female needing screening colonoscopy. She understands risks and benefits of procedure and wishes to proceed. Consent was signed in the chart. DESCRIPTION OF PROCEDURE: The patient was taken to the endoscopy suite, placed in left lateral recumbent position. Timeout was performed. Digital rectal exam was performed. There were no palpable polyps, masses or ulcerations. Scope was inserted in the rectum and advanced all the way to cecum with minimal difficulty. Prep was adequate. Scope was then slowly retracted back. No polyps, masses or ulcerations within the cecum. The ileocecal valve was intubated, which the ileum had normal appearance. Scope was then continuously retracted back. No polyps, masses or ulcerations within the ascending, transverse and descending and sigmoid colon. Some diverticulosis of the sigmoid colon. Once in the rectum, a rectal polyp present. Snare polypectomy was performed. Scope was retroflexed noting no other pathology. Scope was returned to its normal position, slowly withdrawn until completely removed. The patient tolerated procedure well without any complications, taken to recovery room in stable condition. RECOMMENDATIONS: The patient will recommend high fiber diet due to diverticulosis. The patient also with a rectal polyp. Follow up on pathology in a couple of weeks and will need repeat colonoscopy in 5 years. Any issues before that be seen at that time. Job ID: [id number] DocumentID: [id number] Dictated Date: 06/07/2021 08:36:14 [employer] Sauce Date: 06/07/2021 14:20:36 Dictated By: TOM SPENCE DO
== END 2021-06-07 09:20 | disposition home or self-care (01) ==
LOC: ENDO 06:58
PROVIDERS: ATTEND Surgery
DX: Z12.11 Encounter for screening for malignant neoplasm of colon (principal); K62.1 Rectal polyp; K57.30 Diverticulosis of large intestine without perforation or abscess without bleeding; E66.01 Morbid (severe) obesity due to excess calories; Z68.41 Body mass index [BMI] 40.0-44.9, adult; Z79.82 Long term (current) use of aspirin; Z79.899 Other long term (current) drug therapy
CPT/HCPCS: 84703

== ENCOUNTER → 2021-12-30 | Outpatient (CLI) | payer BC ==
[~2021-12-30] MED LIST changes: +OMEP20TA56 PO; -OMEP20TA7 PO
--- NOTE | 2022-01-02 15:48 | Diagnostic Imaging Report ---
INDICATION: Routine screening. No prior mammograms are available for comparison. This is a baseline study. 2-D and 3-D bilateral screening mammography was performed with CAD. Scattered fibroglandular densities are identified bilaterally. Occasional benign calcifications are noted. No dominant mass or malignant-appearing microcalcifications are seen. Axillae are unremarkable. IMPRESSION: No mammographic features suspicious for malignancy are identified. ACR BI-RADS Category 2: Benign findings. Result letter will be mailed to the patient. Note: At least 10% of breast cancer is not imaged by mammography. BI-RADS Category 2 Dictated by: Dictated on workstation # [id number]
== END ==
LOC: RAD 11:30
PROVIDERS: ATTEND Nurse Practitioner Family
DX: Z12.31 Encounter for screening mammogram for malignant neoplasm of breast (principal)
CPT/HCPCS: 77063; 77067

== ENCOUNTER → 2022-01-31 | Outpatient (CLI) | payer BC ==
--- NOTE | 2022-01-31 15:28 | Diagnostic Imaging Report ---
PROCEDURE: US Thyroid. TECHNIQUE: Multiple Real-time grayscale images were obtained of the thyroid in various projections. INDICATION: Enlarged thyroid. COMPARISON: Correlation is made with the prior thyroid ultrasound from 02/19/2015. FINDINGS: Both lobes of the thyroid gland are enlarged. The right lobe measures 6.0 x 2.6 x 2.7 cm and the left lobe measures 5.9 x 1.9 x 2.2 cm. The isthmus is 6 mm in thickness. Both lobes demonstrate marked parenchymal heterogeneity. There are numerous nodules in both lobes. Calcified nodules on the left are less than 1 cm in size. There is a slightly echogenic nodule on the right measuring approximately 10 mm in diameter. A hypoechoic nodule in the lower pole measures 15 mm x 8 mm x 12 mm. A second hypoechoic nodule in the lower pole measures 15 mm x 8 mm x 10 mm. Both nodules are wider than they are tall. No microcalcifications are seen. IMPRESSION: Large multinodular thyroid. Right lower pole hypoechoic nodules are Ti-RADS 4. Fine-needle aspiration of the two 15 mm nodules in the right lower pole would be recommended for further evaluation. Dictated by: Dictated on workstation # [id number]
== END ==
LOC: RAD 13:00
PROVIDERS: ATTEND Nurse Practitioner Family
DX: E04.2 Nontoxic multinodular goiter (principal)
CPT/HCPCS: 76536

== ENCOUNTER → 2022-02-06 | Outpatient (CLI) | payer BC ==
[~2022-02-06] MED LIST changes: +LIDOCAINE 1% INJ 20 ML VIAL INJ ONE
== END ==
LOC: RAD 08:42
PROVIDERS: ATTEND Family Medicine
DX: Z53.9 Procedure and treatment not carried out, unspecified reason (principal)